=== PATIENT | female | born 1980 | race Caucasian/White ===

== ENCOUNTER 2017-10-14 11:27 | Emergency (ER) | payer MEDICAID ==
[2017-10-14 11:31] VITALS: BMI 35.3
[2017-10-14 11:33] VITALS: BP 132/85; PULSE 95; RESP 20; TEMP 98.6
[2017-10-14 11:44] VITALS: O2SAT 98
--- NOTE | 2017-10-14 12:27 | ED PDOC ---
Upper Extremity Pain/Injury Time Seen by Provider: 10/14/17 11:39 Chief Complaint (Nursing): Upper Extremity Problem/Injury Chief Complaint (Provider): shoulder pain History Per: Patient History/Exam Limitations: no limitations Onset/Duration Of Symptoms: Days (10/14/17) Current Symptoms Are (Timing): Still Present Quality: "Pain" Exacerbating Factor(s): Movement (adduction and abduction) Additional Complaint(s): 37 year old female with a past medical history of diabetes, asthma, and anemia presents to the ED complaining of shoulder pain onset today morning. Reports the pain becomes worse when she raises her arm (adduction and abduction). Denies trauma or weakness. PMD: Marcelino Alvarenga Past Medical History Reviewed: Historical Data, Nursing Documentation, Vital Signs Vital Signs: Last Vital Signs Temp 98.6 F 10/14/17 11:32 Pulse 95 H 10/14/17 11:32 Resp 20 10/14/17 11:32 BP 132/85 10/14/17 11:32 Pulse Ox 98 10/14/17 11:42 - Medical History PMH: Anemia, Asthma, Diabetes Denies: Chronic Kidney Disease - Family History Family History: States: Unknown Family Hx - Home Medications Home Medications: Ambulatory Orders Medication Instructions Recorded Ergocalciferol (Vitamin D2) 50,000 iu PO .WEEKLY 05/18/15 [Vitamin D2] MetFORMIN [glucoPHAGE] 1,000 mg PO BID 05/18/15 Montelukast [Singulair] 10 mg PO DAILY 05/18/15 DULoxetine [Cymbalta] 20 mg PO DAILY #0 ecc 05/21/15 Docusate [Colace] 100 mg PO BID #0 cap 05/21/15 Ferrous Sulfate 325 mg PO BID #0 tab 05/21/15 HYDROmorphone [Dilaudid] 2 mg PO Q4 PRN #0 tab 05/21/15 Ibuprofen [Motrin Tab] 600 mg PO Q6 PRN #0 tab 05/21/15 Pregabalin [Lyrica] 50 mg PO TID #0 cap 05/21/15 Naproxen [Naprosyn] 500 mg PO BID #20 tab 12/21/15 traMADol [Ultram] 50 mg PO TID PRN #15 tab 12/21/15 Naproxen [Naprosyn] 500 mg PO BID PRN #20 tablet 01/12/16 Naproxen [Naprosyn] 500 mg PO Q12H #20 tab 10/14/17 - Allergies Allergies/Adverse Reactions: Allergies Allergy/AdvReac Type Severity Reaction Status Date / Time No Known Allergies Allergy Verified 10/14/17 11:42 Review of Systems ROS Statement: Except As Marked, All Systems Reviewed And Found Negative Constitutional: Negative for: Weakness, Other (trauma) Musculoskeletal: Positive for: Shoulder Pain (right) Physical Exam - Reviewed Nursing Documentation Reviewed: Yes Vital Signs Reviewed: Yes - Physical Exam Appears: Positive for: Non-toxic, No Acute Distress Head Exam: Positive for: ATRAUMATIC, NORMAL INSPECTION, NORMOCEPHALIC Skin: Positive for: Normal Color, Warm, Dry Pulses-Radial (R): 2+ (2+/4) Extremity: Positive for: Tenderness (insertion of bicep tendon). Negative for: Normal ROM (limited due to pain (right shoulder)), Deformity Neurologic/Psych: Positive for: Alert, Oriented (x3). Negative for: Motor/ Sensory Deficits - ECG O2 Sat by Pulse Oximetry: 98 (RA) Pulse Ox Interpretation: Normal Medical Decision Making Medical Decision Making: Time: 1226 Initial Plan: --Right Shoulder [RAD] --Reevaluation Scribe Attestation: Documented by Yomaira Mason, acting as a scribe for America Fierro MD Provider Scribe Attestation: All medical record entries made by the Scribe were at my direction and personally dictated by me. I have reviewed the chart and agree that the record accurately reflects my personal performance of the history, physical exam, medical decision making, and the department course for this patient. I have also personally directed, reviewed, and agree with the discharge instructions and disposition. Disposition - Clinical Impression Clinical Impression: Biceps tendonitis - Patient ED Disposition Is Patient to be Admitted: No Counseled Patient/Family Regarding: Studies Performed, Diagnosis, Need For Followup, Rx Given - Disposition Referrals: [facility] [Outside] Disposition: Routine/Home Disposition Time: 13:12 Condition: FAIR Prescriptions: Naproxen [Naprosyn] 500 mg PO Q12H #20 tab Instructions: Biceps Tendinopathy Forms: [facility] (Hebrew)
--- NOTE | 2017-10-15 19:54 | RAD ---
PROCEDURE: Radiographs of the Right Shoulder HISTORY: Pain COMPARISON: No prior. FINDINGS: BONES: There is no acute displaced fracture or bone destruction. Bone alignment and mineralization are normal JOINTS: Normal. Glenohumeral and acromioclavicular joints preserved. No osteoarthritis. SOFT TISSUES: Normal. OTHER FINDINGS: None. IMPRESSION: No acute fracture or dislocation.
== END 2017-10-14 13:19 | disposition home or self-care (01) ==
LOC: H.ER 11:27
DX: M75.21 Bicipital tendinitis, right shoulder (principal); E11.9 Type 2 diabetes mellitus without complications; J45.909 Unspecified asthma, uncomplicated; Z79.84 Long term (current) use of oral hypoglycemic drugs